=== PATIENT | male | born 1965 | race Caucasian/White ===

== ENCOUNTER 2019-02-22 15:29 | Emergency (ER) | payer MEDICAID ==
[2019-02-22] MEDS: LIDOCAINE 1% (MPF) 5 ML VIAL INFIL (17:14)
[2019-02-22] MEDS: CEFAZOLIN 1 GM INJ IM (17:18)
[2019-02-22] MEDS: KETOROLAC 30 MG INJ IM (21:15)
== END 2019-02-22 22:20 | disposition short-term general hospital (02) ==
LOC: FTE 15:29
DX: S62.620A Displaced fracture of middle phalanx of right index finger, initial encounter for closed fracture (principal); S62.610A Displaced fracture of proximal phalanx of right index finger, initial encounter for closed fracture; W23.0XXA Caught, crushed, jammed, or pinched between moving objects, initial encounter; Y92.89 Other specified places as the place of occurrence of the external cause
CPT/HCPCS: 29130; 73140; 96372; 99285-25